=== PATIENT | male | born 1990 | race Caucasian/White ===

== ENCOUNTER 2017-03-27 14:09 | Emergency (ER) | payer BC ==
[2017-03-27 14:17] VITALS: RESP 14; TEMP 99.1; O2SAT 96
[2017-03-27] MEDS ORDERED: TDAP ADULT 0.5 ML INJ (BOOSTRIX) IM ONE (15:56)
--- NOTE | 2017-03-27 16:06 | EDPHY ---
H & P Time Seen by Provider: 03/27/17 15:59 HPI/ROS: CHIEF COMPLAINT: Dog bite left forearm HISTORY OF PRESENT ILLNESS: 26-year-old immunocompetent male with out-of-date tetanus, complaining of dog bite left forearm last evening which occurred is breaking up a fight between 2 dogs. He is complaining of pain to the radial aspect. No paresthesia. PHYSICAL EXAM (Prior to examination, patient consented to physical exam, hands were washed and my usual and customary physical exam procedures followed) 1) GENERAL: Well-developed, well-nourished, alert and oriented. Appears to be in no acute distress. 2) HEAD: Normocephalic 3) HEENT: sclera anicteric 4) LUNGS: Breathing comfortably. 5) SKIN: left distal 3rd forearm dorsal aspect single puncture wound with no signs of infection, granulating appropriately. 0 volar ecchymosis with tenderness to the radius. 6) MUSCULOSKELETAL: radial ulnar median nerve function intact. 7) NEUROLOGIC: Full sensation distally distal pulses intact. Smoking Status: Former smoker Constitutional: Initial Vital Signs Temperature (C) 37.3 C 03/27/17 14:15 Heart Rate 90 03/27/17 14:15 Respiratory Rate 14 03/27/17 14:15 Blood Pressure 141/96 H 03/27/17 14:15 O2 Sat (%) 96 03/27/17 14:15 O2 Delivery Mode Room Air Allergies/Adverse Reactions: doxycycline Allergy (Verified 08/20/13 13:24) tetracycline [Tetracycline] Allergy (Verified 08/20/13 13:24) Home Medications: Medication Instructions Recorded Aspirin 81mg (OTC) 08/20/13 Amoxicillin/Clavulanate Pot 875 mg PO BID #14 tab 03/27/17 [Augmentin 875 mg tab] MDM/Departure - MDM Imaging Results: Imaging Impressions Forearm X-Ray 03/27/17 16:04 Impression: 1. Negative left forearm radiographs. Images reviewed by myself Medications Given: Discontinued Medications Amoxicillin/Clavulanate Potassium (Augmentin 875mg) 875 mg PO EDNOW ONE PRN Reason: Protocol Stop: 03/27/17 16:48 Last Admin: 03/27/17 16:56 Dose: 875 mg Diphtheria/Tetanus/Acell Pertussis (Boostrix) 0.5 ml IM .ONCE ONE Stop: 03/27/17 15:57 Last Admin: 03/27/17 16:04 Dose: 0.5 ml ED Course/Re-evaluation: Reviewed the negative x-ray, tetanus has been updated, started on Augmentin, no signs of infection, recommend 2 day recheck, given usual and customary wound precautions and instructions.Care of patient under supervision of secondary supervising physician Dr Hays . - Depart Disposition: Home, Routine, Self-Care Condition: Good Instructions: Animal Bite (ED) Additional Instructions: Return to the ER if you develop redness, swelling, discharge, warmth to the wound, red streaks going up your arm , or any other symptoms that concern you. Prescriptions: Amoxicillin/Clavulanate Pot [Augmentin 875 mg tab] 875 mg PO BID #14 tab Referrals: Return, to the ER in 2 days for recheck [Other] - As per Instructions
[2017-03-27] MEDS ORDERED: AMOXICILLIN/CLAVULANATE POT 875/125 MG TAB PO ONE (16:47)
[2017-03-27 16:59] VITALS: BP 132/87; PULSE 81
== END 2017-03-27 16:59 | disposition home or self-care (01) ==
DX: S51.852A Open bite of left forearm, initial encounter (principal); Z23 Encounter for immunization; Z87.891 Personal history of nicotine dependence; W54.0XXA Bitten by dog, initial encounter